=== PATIENT | male | born 1950 | race Caucasian/White ===

== ENCOUNTER 2020-04-11 16:03 | Observation (INO) ==
[2020-04-11] MEDS ORDERED: Isovue-370 500 ML BOTTLE IVP ONE (16:07)
[2020-04-11 16:27] LABS: Bilirubin,Urine Large (Negative); Blood,Urine Large (Negative); Clarity,Urine Cloudy (Clear); Color,Urine Red (Yellow); Glucose,Urine (UA) 100 mg/dL (Normal); Ketones,Urine 15 mg/dL (Negative); Leukocyte Esterase,Urine Large (Negative); Nitrite,Urine Positive (Negative); PH,Urine 8.5 pH Units (5.0-8.0); Protein,Urine >=300 mg/dL (Neg-Trace); Specific Gravity,Urine 1.015 (1.010-1.025)
[2020-04-11 16:49] LABS: Bacteria,Urine Few per hpf (None-Few); RBC,Urine TNTC per hpf (0-3); WBC,Urine 15-30 per hpf (0-3)
[2020-04-11 17:06] LABS: Basophils % 0.1 %; Eosinophils % 0.5 %; Hematocrit 41.6 % (37.5-50.1); Hemoglobin 13.9 g/dL (12.9-16.9); Immature Granulocytes % 0.1 % (0-4); Lymphocytes # 1.2 K/mcL (0.6-4.6); Lymphocytes % 15.4 %; Mean Corpuscular HGB Conc 33.4 g/dL (31.6-35.5); Mean Corpuscular Hemoglobin 33.1 pg (28.0-33.3); Mean Platelet Volume 9.7 fL (9.4-12.4); Monocytes # 0.6 K/mcL (0.0-1.3); Monocytes % 7.8 %; Platelet Count 248 K/mcL (140-400); Red Cell Distribution Width 13.3 % (11.5-14.5); Segmented Neutrophils % 76.1 %; White Blood Count 7.9 K/mcL (4.3-11.1)
[2020-04-11 17:28] LABS: Alanine Aminotransferase 17 Units/L (7-52); Albumin 4.4 g/dL (3.5-5.7); Albumin/Globulin Ratio 1.5 (1.1-2.2); Alkaline Phosphatase 75 Units/L (34-104); Aspartate Amino Transferase 19 Units/L (13-39); BUN/Creatinine Ratio 16 (6-26); Bilirubin,Total 0.5 mg/dL (0.3-1.0); Blood Urea Nitrogen 13 mg/dL (8-23); Calcium 9.9 mg/dL (8.6-10.3); Carbon Dioxide 29 mEq/L (23-29); Chloride 102 mEq/L (98-107); Globulin 2.9 g/dL (2.4-3.5); Glucose 103 mg/dL (70-105); Osmolality,Calculated 288 (280-300); Potassium 3.6 mEq/L (3.5-5.1); Sodium 139 mEq/L (136-145); Total Protein 7.3 g/dL (6.4-8.9); eGFR For African Americans > 60 (> 60); eGFR For Non-African Americans > 60 (> 60)
[2020-04-11] MEDS ORDERED: cefTRIAXone 1,000 MG in Water for inj. (sterile) 10 ML IVP ONE (18:51)
[2020-04-11 19:19] LABS: INR 1.1
[2020-04-11 19:21] LABS: Activated Partial Thrombo Time 26.3 Seconds (26.0-36.0)
[2020-04-11] MEDS ORDERED: Naloxone 0.4 MG/ML INJ IVP PRN (20:27)
[2020-04-11] MEDS ORDERED: Ondansetron ODT 4 MG TAB.RAPDIS SL PRN (20:27)
[2020-04-11] MEDS ORDERED: Ringers Solution, Lactated 1,000 ML IVC SCH (21:45)
[2020-04-12 04:34] LABS: Basophils % 0.3 %; Eosinophils # 0.1 K/mcL (0.0-0.6); Eosinophils % 1.2 %; Hematocrit 36.6 % (37.5-50.1); Hemoglobin 12.4 g/dL (12.9-16.9); Immature Granulocytes % 0.2 % (0-4); Lymphocytes # 1.4 K/mcL (0.6-4.6); Lymphocytes % 14.7 %; Mean Corpuscular HGB Conc 33.9 g/dL (31.6-35.5); Mean Corpuscular Hemoglobin 33.8 pg (28.0-33.3); Mean Corpuscular Volume 99.7 fL (83.0-100.0); Monocytes # 0.8 K/mcL (0.0-1.3); Monocytes % 8.6 %; Neutrophils # 7.3 K/mcL (1.6-8.9); Platelet Count 226 K/mcL (140-400); Red Blood Count 3.67 M/mcL (4.19-5.50); Red Cell Distribution Width 13.5 % (11.5-14.5); White Blood Count 9.8 K/mcL (4.3-11.1)
[2020-04-12 04:54] LABS: BUN/Creatinine Ratio 18 (6-26); Blood Urea Nitrogen 14 mg/dL (8-23); Calcium 9.2 mg/dL (8.6-10.3); Carbon Dioxide 29 mEq/L (23-29); Chloride 104 mEq/L (98-107); Glucose 103 mg/dL (70-105); Magnesium 1.8 mg/dL (1.6-2.6); Osmolality,Calculated 291 (280-300); Phosphorous 3.5 mg/dL (2.7-4.5); Potassium 3.5 mEq/L (3.5-5.1); Sodium 140 mEq/L (136-145); eGFR For African Americans > 60 (> 60); eGFR For Non-African Americans > 60 (> 60)
[2020-04-12] MEDS ORDERED: atenoloL 50 MG TABLET PO SCH (09:00)
[2020-04-12] MEDS ORDERED: DilTIAZem CD (24hr) 240 MG CAP.ER.24H PO SCH (09:00)
[2020-04-12] MEDS: Acetaminophen 325 MG TABLET PO PRN ×2 (10:50→19:40)
[2020-04-12] MEDS ORDERED: *HR* HYDROcodone/Acet 5/325 mg TABLET PO ONE (13:46)
[2020-04-12] MEDS ORDERED: Gabapentin 300 MG CAPSULE PO SCH (15:00)
[2020-04-12 17:03] LABS: Adenovirus Not Detected (Not Detect); Bordetella Pertussis Not Detected (Not Detect); Chlamydophila pneumoniae Not Detected (Not Detect); Coronavirus 229E Not Detected (Not Detect); Coronavirus HKU1 Not Detected (Not Detect); Coronavirus NL63 Not Detected (Not Detect); Coronavirus OC43 Not Detected (Not Detect); Human Metapneumovirus Not Detected (Not Detect); Human Rhinovirus/Enterovirus Not Detected (Not Detect); Influenza A Subtype 2009 H1 Not Detected (Not Detect); Influenza B Not Detected (Not Detect); Mycoplasma pneumoniae Not Detected (Not Detect); Parainfluenza Virus 1 Not Detected (Not Detect); Parainfluenza Virus 2 Not Detected (Not Detect); Parainfluenza Virus 3 Not Detected (Not Detect); Parainfluenza Virus 4 Not Detected (Not Detect); Respiratory Syncytial Virus Not Detected (Not Detect); SARS-CoV-2 Not Detected (Not Detect)
[2020-04-12] MEDS ORDERED: cefTRIAXone 1,000 MG in Water for inj. (sterile) 10 ML IVP SCH (18:00)
[2020-04-12] MEDS ORDERED: Lidocaine -MPF 2% 2 ML VIAL ONE (19:37)
[2020-04-12] MEDS ORDERED: *HR* Propofol 200 MG/20 ML VIAL IVP ONE (19:38)
[2020-04-12] MEDS ORDERED: *HR* FentaNYL (PF) 100 MCG/2 ML VIAL ONE (19:38)
[2020-04-12] MEDS ORDERED: *HR* HYDROmorphone (PF) 1 MG/ML SYRINGE IVP PRN (20:07)
[2020-04-12] MEDS ORDERED: Ondansetron 4 MG/2 ML VIAL IVP PRN (20:07)
[2020-04-12] MEDS ORDERED: *HR* Labetalol 20 MG/4 ML SYRINGE IVP PRN (20:07)
[2020-04-12] MEDS ORDERED: traZODone 50 MG TABLET PO SCH ×2 (21:00→23:00)
[2020-04-12] MEDS ORDERED: Naloxone 0.4 MG/ML INJ IVP PRN (21:49)
[2020-04-12] MEDS ORDERED: Ondansetron ODT 4 MG TAB.RAPDIS SL PRN (21:49)
[2020-04-12] MEDS ORDERED: Acetaminophen 325 MG TABLET PO PRN (21:49)
[2020-04-12] MEDS ORDERED: *HR* Belladonna Alkaloids/Opium 30 MG RECTAL SUPPOSITORY RC PRN (21:49)
[2020-04-12] MEDS: Gabapentin 300 MG CAPSULE PO SCH (22:58)
[2020-04-13 02:53] LABS: Basophils % 0.1 %; Hematocrit 41.3 % (37.5-50.1); Hemoglobin 13.2 g/dL (12.9-16.9); Immature Granulocytes % 0.3 % (0-4); Lymphocytes # 0.7 K/mcL (0.6-4.6); Lymphocytes % 5.5 %; Mean Corpuscular Hemoglobin 33.6 pg (28.0-33.3); Mean Corpuscular Volume 105.1 fL (83.0-100.0); Monocytes # 0.3 K/mcL (0.0-1.3); Monocytes % 2.8 %; Neutrophils # 10.9 K/mcL (1.6-8.9); Platelet Count 176 K/mcL (140-400); Red Blood Count 3.93 M/mcL (4.19-5.50); Red Cell Distribution Width 14.6 % (11.5-14.5); Segmented Neutrophils % 91.3 %
[2020-04-13 03:04] LABS: BUN/Creatinine Ratio 21 (6-26); Blood Urea Nitrogen 18 mg/dL (8-23); Calcium 9.1 mg/dL (8.6-10.3); Carbon Dioxide 22 mEq/L (23-29); Chloride 106 mEq/L (98-107); Glucose 148 mg/dL (70-105); Osmolality,Calculated 291 (280-300); Potassium 4.2 mEq/L (3.5-5.1); Sodium 138 mEq/L (136-145); eGFR For African Americans > 60 (> 60); eGFR For Non-African Americans > 60 (> 60)
[2020-04-13] MEDS ORDERED: DilTIAZem CD (24hr) 240 MG CAP.ER.24H PO SCH (09:00)
[2020-04-13] MEDS ORDERED: atenoloL 50 MG TABLET PO SCH (09:00)
[2020-04-13] MEDS ORDERED: Gabapentin 300 MG CAPSULE PO SCH (09:00)
[2020-04-13] MEDS ORDERED: allopurinoL 100 MG TABLET PO SCH ×2 (09:00)
[2020-04-13] MEDS: Gabapentin 300 MG CAPSULE PO SCH (10:21)
[2020-04-13 10:39] VITALS: BP 142/89
[2020-04-13] MEDS ORDERED: cefTRIAXone 1,000 MG in Water for inj. (sterile) 10 ML IVP SCH (18:00)
[2020-04-13] MEDS ORDERED: traZODone 50 MG TABLET PO SCH (21:00)
[2020-04-14] MEDS ORDERED: Metoprolol XL (24 HR) Succ 50 MG TAB.ER.24H PO SCH (09:00)
== END 2020-04-13 15:05 | disposition home or self-care (01) ==
LOC: EMEROOARM 16:03 → 3ANU 16:03 → SUATTDRO 20:02 → 3ANU 20:36
PROVIDERS: ADMIT Internal Medicine; ATTEND General Practice

== ENCOUNTER 2021-02-24 01:09 | Inpatient (IN) ==
[2021-02-24 01:48] LABS: Basophils # 0.1 K/mcL (0.0-0.2); Basophils % 0.6 %; Eosinophils # 0.2 K/mcL (0.0-0.6); Eosinophils % 2.8 %; Hematocrit 34.9 % (37.5-50.1); Hemoglobin 11.5 g/dL (12.9-16.9); Immature Granulocytes % 0.4 % (0-4); Lymphocytes # 1.7 K/mcL (0.6-4.6); Mean Corpuscular Volume 100.3 fL (83.0-100.0); Mean Platelet Volume 8.8 fL (9.4-12.4); Monocytes # 0.8 K/mcL (0.0-1.3); Monocytes % 10.4 %; Neutrophils # 5.1 K/mcL (1.6-8.9); Platelet Count 338 K/mcL (140-400); Red Blood Count 3.48 M/mcL (4.19-5.50); Red Cell Distribution Width 15.3 % (11.5-14.5); Segmented Neutrophils % 64.8 %; White Blood Count 7.9 K/mcL (4.3-11.1)
[2021-02-24 01:57] LABS: INR 1.1; Prothrombin Time 12.5 Seconds (9.4-12.1)
[2021-02-24 01:59] LABS: Activated Partial Thrombo Time 25.9 Seconds (26.0-36.0)
[2021-02-24 02:08] LABS: Alanine Aminotransferase 15 Units/L (7-52); Albumin 3.9 g/dL (3.5-5.7); Albumin/Globulin Ratio 1.4 (1.1-2.2); Alkaline Phosphatase 68 Units/L (34-104); Aspartate Amino Transferase 18 Units/L (13-39); BUN/Creatinine Ratio 16 (6-26); Bilirubin,Total 0.3 mg/dL (0.3-1.0); Blood Urea Nitrogen 22 mg/dL (8-23); Calcium 8.9 mg/dL (8.6-10.3); Carbon Dioxide 26 mEq/L (23-29); Chloride 103 mEq/L (98-107); Globulin 2.7 g/dL (2.4-3.5); Glucose 105 mg/dL (70-105); Osmolality,Calculated 286 (280-300); Potassium 4.4 mEq/L (3.5-5.1); Sodium 136 mEq/L (136-145); Total Protein 6.6 g/dL (6.4-8.9); eGFR For African Americans > 60 (> 60); eGFR For Non-African Americans 52 (> 60)
[2021-02-24] MEDS ORDERED: Isovue-370 500 ML BOTTLE IVP ONE (02:19)
[2021-02-24 02:22] LABS: Bilirubin,Urine Negative (Negative); Blood,Urine Moderate (Negative); Clarity,Urine Clear (Clear); Color,Urine Light-Yellow (Yellow); Glucose,Urine (UA) Normal (Normal); Ketones,Urine Negative (Negative); Leukocyte Esterase,Urine Negative (Negative); Nitrite,Urine Negative (Negative); PH,Urine 6.5 pH Units (5.0-8.0); Protein,Urine 100 mg/dL (Neg-Trace); RBC,Urine TNTC per hpf (0-3); Specific Gravity,Urine 1.012 (1.010-1.025); Urobilinogen,Urine Normal (Normal); WBC,Urine TNTC per hpf (0-3)
[2021-02-24] MEDS ORDERED: Acetaminophen 325 MG TABLET PO PRN (04:27)
[2021-02-24] MEDS ORDERED: *HR* HYDROcodone/Acet 5/325 mg TABLET PO PRN (04:27)
[2021-02-24] MEDS ORDERED: Ondansetron 4 MG/2 ML VIAL IVP PRN (04:27)
[2021-02-24] MEDS ORDERED: Melatonin 3 MG TABLET PO PRN (04:27)
[2021-02-24] MEDS ORDERED: Naloxone 0.4 MG/ML INJ IVP PRN (04:27)
[2021-02-24] MEDS ORDERED: cefTRIAXone 1,000 MG in Water for inj. (sterile) 10 ML IVP ONE (04:29)
[2021-02-24] MEDS ORDERED: Lidocaine 4% CREAM (LMX) 5 GM TP SCH (09:00)
[2021-02-24] MEDS ORDERED: 0.9 % Sodium Chloride 1,000 ML IVC SCH (09:45)
[2021-02-24 14:47] VITALS: BP 133/85; PULSE 63; TEMP 98; O2SAT 96
[2021-02-25] MEDS ORDERED: cefTRIAXone 1,000 MG in Water for inj. (sterile) 10 ML IVP SCH (09:00)
== END 2021-02-24 15:25 | disposition home or self-care (01) | DRG 699 ==
LOC: EMEROOARM 01:09 → 3ANU 01:09 → SUATTDRO 05:01 → 3ANU 05:30
PROVIDERS: ADMIT Internal Medicine; ATTEND Internal Medicine